=== PATIENT | female | born 1965 | race Caucasian/White ===

== ENCOUNTER → 2020-11-24 | Outpatient (CLI) | payer BC ==
[~2020-11-24] MED LIST: HARD NAILS2500 MCG PO; NAPROSYN500 MG PO; NORCO 7.5-3251 EACH PO; OMEGA-3 KRILL1 EACH PO; TOPROL XL25 MG PO; VITAMIN D35000 UNI1 PO
== END ==
LOC: KOH-I 10:40
DX: M54.9 Dorsalgia, unspecified (principal); R93.7 Abnormal findings on diagnostic imaging of other parts of musculoskeletal system
CPT/HCPCS: 72100; 73522

== ENCOUNTER → 2021-01-23 | Outpatient (CLI) | payer BC | LOC: NM 12-23 09:10 | DX: R74.8 Abnormal levels of other serum enzymes (principal) | CPT/HCPCS: 78306; A9503 ==

== ENCOUNTER → 2021-10-03 | Outpatient (CLI) | payer OTHER | LOC: KOH-I 09-22 15:00 | DX: R22.1 Localized swelling, mass and lump, neck (principal) | CPT/HCPCS: 76536 ==